=== PATIENT | female | born 1990 | race African-American/Black ===

== ENCOUNTER 2017-11-07 17:09 | Emergency (ER) | payer OTHER ==
[2017-11-07 17:27] VITALS: TEMP 98.9
--- NOTE | 2017-11-07 18:36 | ED ---
General Adult HPI - General Chief complaint: Upper Respiratory Infection Stated complaint: DAVID Time Seen by Provider: 11/07/17 18:24 Source: patient, RN notes reviewed Mode of arrival: ambulatory Limitations: no limitations - History of Present Illness Initial comments: Chief complaint and history of present illness a 27-year-old female with a complaint of flu-type symptoms muscle aches and pains shortness of breath. - Related Data Home Medications Medication Instructions Recorded Confirmed Acetaminophen [Tylenol Extra 1,000 mg PO Q6H PRN 11/07/17 11/07/17 Strength] Ibuprofen [Motrin Ib] 600 mg PO Q6H PRN 11/07/17 11/07/17 Zonisamide [Zonegran] 100 mg PO TID 11/07/17 11/07/17 clonazePAM [KlonoPIN] 1 mg PO BID 11/07/17 11/07/17 Previous Rx's Medication Instructions Recorded Ondansetron Odt [Zofran Odt] 4 mg PO Q8HR PRN #10 tab 11/07/17 Allergies Allergy/AdvReac Type Severity Reaction Status Date / Time No Known Allergies Allergy Verified 11/07/17 17:27 Review of Systems ROS Statement: Those systems with pertinent positive or pertinent negative responses have been documented in the HPI. review of systems. Patient states she has flu-type symptoms mostly contained past couple days fever at home. No reported nausea vomiting or diarrhea. No skin rashes. past medical problems asthma, skin disorder Tourette's and OCD. Last seizure was proximal one week ago. Patient smokes cigarettes strongly encouraged to stop ROS Other: All systems not noted in ROS Statement are negative. Past Medical History Past Medical History: Asthma, Skin Disorder Additional Past Medical History / Comment(s): Turrets, OCD History of Any Multi-Drug Resistant Organisms: None Reported Additional Past Surgical History / Comment(s): lumpectomy Past Psychological History: Anxiety Smoking Status: Current every day smoker Past Alcohol Use History: Occasional Past Drug Use History: None Reported General Exam - General Exam Comments Initial Comments: General: The patient is awake and alert, in no distress, and does not appear acutely ill. here with a chief complaint difficulty breathing and flu-type symptoms muscle aches and pains or fever at home. Vital signs show temperature 98.9 pulse 123 respiratory rate 28 pulse ox 99% room air blood pressure 142/85 Eye: Pupils are equal, round and reactive to light, extra-ocular movements are intact ; there is normal conjunctiva bilaterally. No signs of icterus. Ears, nose, mouth and throat: There are moist mucous membranes and no oral lesions. Neck: The neck is supple, Cardiovascular: tachycardic heart rate, 125. No murmur, rub or gallop is appreciated. Respiratory: Lungs are clear to auscultation, respirations are non-labored, breath sounds are equal. No wheezes, stridor, rales, or rhonchi. Gastrointestinal: no nausea no vomiting or diarrhea. Back: no back pain. Musculoskeletal: no rashes. No neuro deficits. Limitations: no limitations Course Vital Signs 11/07/17 11/07/17 17:23 18:15 Temperature 98.9 F Pulse Rate 123 H Respiratory 28 H 20 Rate Blood Pressure 142/85 O2 Sat by Pulse 99 Oximetry Medical Decision Making - Medical Decision Making medical decision making; this is a 27-year-old female with complaint of muscle aches and pains and fever at home.patient did not get a flu shot this year. sHe has not been exposed to it to her knowledge. The patient's influenza test was negative. chest x-ray was done and reviewed radiologist his impression is there is no focal airspace opacity, pleural effusion, or pneumothorax seen. Cardiac silhouette size within normal limits. The osseous structures are intact. Impression no acute cardiopulmonary process. As read by Dr. Posadas Discussed viral syndrome with the patient. She'll be advised to use ibuprofen 600 mg every 6 hours for pain and fever. She'll be given a prescription of Zofran to be taken if she develops nausea. Advised to follow with family physician. - Lab Data Lab Results 11/07/17 11/07/17 Range/Units 17:30 18:44 Urine HCG, Qual Not Detected (Not Detectd) Influenza Type A RNA Not Detected (Not Detectd) Influenza Type B (PCR) Not Detected (Not Detectd) Disposition Clinical Impression: Viral syndrome Disposition: HOME SELF-CARE Condition: Stable Instructions: Viral Syndrome (ED) Additional Instructions: Tylenol or ibuprofen for fever aches pains. Follow-up with family physician. Use Zofran if nauseated one every 6 hours. Return emergency room as needed Prescriptions: Ondansetron Odt [Zofran Odt] 4 mg PO Q8HR PRN #10 tab PRN Reason: Nausea Referrals: Paulo Paiz MD [Primary Care Provider] - 1-2 days Time of Disposition: 19:42
--- NOTE | 2017-11-07 18:40 | XR ---
EXAMINATION TYPE: XR chest 2V DATE OF EXAM: 11/07/2017 COMPARISON: NONE HISTORY: Chest pain TECHNIQUE: Frontal and lateral views of the chest are obtained. FINDINGS: There is no focal air space opacity, pleural effusion, or pneumothorax seen. The cardiac silhouette size is within normal limits. The osseous structures are intact. IMPRESSION: No acute cardiopulmonary process.
[2017-11-07 19:55] VITALS: BP 146/85; RESP 16
[2017-11-07] MEDS ORDERED: IPRATROPIUM-ALBUTEROL 3 ML NEB INHALATION STA ×2 (20:10)
[2017-11-07 20:18] VITALS: PULSE 100
== END 2017-11-07 20:25 | disposition home or self-care (01) ==
LOC: EC 17:09
DX: B34.9 Viral infection, unspecified (principal); R00.0 Tachycardia, unspecified; F17.200 Nicotine dependence, unspecified, uncomplicated; Z79.899 Other long term (current) drug therapy
CPT/HCPCS: 71046; 81025; 87502; 94640; 99284